=== PATIENT | male | born 1970 | race Caucasian/White ===

== ENCOUNTER 2018-11-12 17:59 | Emergency (ER) | payer OTHER ==
[~2018-11-12] VITALS: Ht 170.2 cm; Wt 90.7 kg
[2018-11-12 19:10] LABS: BASOPHIL % 0.5 % (0-2); PLATELET COUNT 227 x10^3mcL (130-400); RED CELL DISTRIBUTION WIDTH 13.3 % (11.5-14.5)
[2018-11-12 19:33] LABS: CALCIUM 8.4 mg/dL (8.5-10.1); CARBON DIOXIDE 23.6 mmol/L (21-32); CHLORIDE SERUM 103 mmol/L (98-107); CREATININE SERUM 0.9 mg/dL (0.7-1.3); GFR1 > 60 mL/min; GLUCOSE SERUM 260 mg/dL (74-106); POTASSIUM SERUM 4.1 mmol/L (3.5-5.1); SODIUM SERUM 139 mmol/L (136-145)
[2018-11-12 19:38] LABS: ALBUMIN 3.7 g/dL (3.4-5.0); ALKALINE PHOSPHATASE 93 U/L (46-116); ALT/SGPT 35 U/L (16-63); AST/SGOT 15 U/L (15-37); BILIRUBIN TOTAL 0.31 mg/dL (0.20-1.00); TOTAL PROTEIN, SERUM 7.5 g/dL (6.4-8.2)
[2018-11-12 20:05] VITALS: BP 110/69
== END 2018-11-12 20:05 | disposition home or self-care (01) ==
LOC: ED 17:59
PROVIDERS: Emergency Medicine
DX: R07.89 Other chest pain (principal); M25.512 Pain in left shoulder; E11.9 Type 2 diabetes mellitus without complications
CPT/HCPCS: 36415; 82962; Q0092